=== PATIENT | female | born 2000 | race Two or more races ===

== ENCOUNTER 2025-04-20 14:42 | Emergency (ER) | payer MEDICAID, SELFPAY ==
[2025-04-20 14:57] VITALS: BP 144/93; PULSE 118; RESP 18; TEMP 37.1; O2SAT 98
[2025-04-20 15:06] VITALS: BMI 27.2
--- NOTE | 2025-04-20 15:08 | EKG_ITS ---
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
[2025-04-20] MEDS: ACETAMINOPHEN 500 MG TABLET 1000 MG PO (15:34)
--- NOTE | 2025-04-20 16:03 | EDNOTE_ITS ---
<Statement entered by Amber Paulino MD - 04/30/25 19:39> As co-signing physician, I was present and available for consult prn. I concur with the plan and care as documented by the midlevel provider. ED Anxiety RME/HPI General Chief Complaint: Anxiety Stated Complaint: ANXIETY Time Seen by Provider: 04/20/25 16:01 Source: patient Arrival date/time: 04/20/25 14:42 25-year-old female with a history of anxiety presents to the emergency room with a chief complaint of an anxiety attack that occurred and began 1 hour ago. Mode of arrival: ambulatory Limitations: no limitations Related Data Home Medications ?Medication ?Instructions ?Recorded ?Confirmed vit no.95-ferrous 1 tab PO DAILY 09/23/2302/10 fumarate 28 mg-folic acid 800 mcg tablet () Allergies Allergy/AdvReac Type Severity Reaction Status Date / Time No Known Allergies Allergy Verified 09/24/23 06:35 Review of Systems Review of Systems Systems Reviewed: All systems reviewed, normal except as documented Constitutional Constitutional: Reports system reviewed and no additional complaints, except as documented, Denies fatigue, Denies fever(s), Denies headache(s) and Denies weakness Eyes Eyes: Reports system reviewed and no additional complaints, except as documented, Denies blurry vision and Denies change in vision ENT Ears, Nose, Mouth, and Throat: Reports system reviewed and no additional complaints, except as documented, Denies otalgia, Denies headache(s), Denies nasal congestion, Denies throat swelling and Denies vertigo Cardiovascular Cardiovascular: Reports system reviewed and no additional complaints, except as documented, Denies chest pain, Denies dyspnea and Denies dyspnea on exertion Respiratory Respiratory: Reports system reviewed and no additional complaints, except as documented, Denies chest congestion, Denies cough, Denies dyspnea, Denies dyspnea on exertion and Denies wheezing Gastrointestinal Gastrointestinal: Reports system reviewed and no additional complaints, except as documented, Denies abdominal pain, Denies cramping, Denies nausea and Denies vomiting Genitourinary Genitourinary: Reports system reviewed and no additional complaints, except as documented Musculoskeletal Musculoskeletal: Reports system reviewed and no additional complaints, except as documented and Denies back pain Integumentary/Breasts Skin/Breast: Reports system reviewed and no additional complaints, except as documented and Denies wounds Neurologic Neurologic: Reports system reviewed and no additional complaints, except as d ocumented, Denies confusion, Denies headache(s), Denies lack of coordination, Denies vertigo and Denies weakness Psychiatric Psychiatric: Reports system reviewed and no additional complaints, except as documented, Reports anxiety, Denies confusion, Denies depression, Denies paranoia, Denies suicidal ideation and Denies tactile hallucinations Endocrine Endocrine: Reports system reviewed and no additional complaints, except as documented and Denies fatigue Hematologic/Lymphatic Hematologic/Lymphatic: Reports system reviewed and no additional complaints, except as documented and Denies lymphadenopathy Allergic/Immunologic Allergic/Immunologic: Reports system reviewed and no additional complaints, except as documented, Denies throat swelling, Denies urticaria and Denies wheezing ED Exam General Limitations: Present no limitations General appearance: Present alert, in no apparent distress and anxious Head Head exam: Present atraumatic Eye Eye exam: Present normal appearance, PERRL and EOMI ENT ENT exam: Present normal exam, normal oropharynx and mucous membranes moist Neck Neck exam: Present normal inspection, full ROM and trachea midline Chest Chest inspection: Present normal inspection and symmetric chest wall rise Respiratory Respiratory exam: Present normal lung sounds bilaterally Cardiovascular Cardiovascular exam: Present regular rate, normal rhythm and normal heart sounds Abdominal Exam Abdominal exam: Present soft and normal bowel sounds Extremities Exam Extremities exam: Present normal inspection and full ROM Back Exam Back exam: Present normal inspection and full ROM Neurological Exam Neurological exam: Present alert, oriented X3 and CN II-XII intact Psychiatric Psychiatric exam: Present normal affect, normal mood and anxious Skin Skin exam: Present warm, dry, intact and normal color Course Quality Measures none Orders Category Date Time Status EKG (ED ONLY) *Do not use* NOW Care 04/20/25 15:08 Active EKG (ED Only) Stat Exams 04/20/25 15:08 Draft ALPRazoLAM [Xanax] Med 04/20/25 14:54 Discontinued 0.5 mg PO X1 ONE Acetaminophen Tab [Tylenol ES Tab] Med 04/20/25 15:23 Discontinued 1,000 mg PO X1 ONE Vital Signs Vital signs: Vital Signs Temperature 98.8 F 04/20/25 14:57 Pulse Rate 118 H 04/20/25 14:57 Respiratory Rate 18 04/20/25 14:57 Blood Pressure 144/93 H 04/20/25 14:57 Pulse Oximetry (%) 98 04/20/25 14:57 Oxygen Delivery Method Room Air 04/20/25 14:57 Anxiety MDM Narrative MDM Narrative: 25-year-old female with a history of anxiety presents to the emergency room with a chief complaint of an anxiety attack that occurred and began 1 hour ago. Patient is hemodynamically stable and in no apparent distress Physical examination shows a strong and regular rhythm. The patient has clear bilateral lung sounds. Patient states she is having an anxiety attack but denies any chest pain stomach pain or any other symptoms. Patient states she has not had an anxiety attack in over a year and states it was triggered by seeing a person was causing her a lot of grief in the past An EKG was completed and patient's heart rate is at 84 bpm and is normal sinus rhythm Patient refused any blood work or any further workup. Anxiety medication was given the patient was reevaluated in 1 hour with significant improvement to her symptoms Patient was discharged and educated to follow-up with primary care provider in the next 24 to 48 hours and return to the emergency room for any evidence of worsening signs or symptoms Patient data External records reviewed:: [facility] previous records Clinical information provided by:: patient Social determinants that could affect healthcare access:: none Patient has the following chronic illnesses:: Anxiety How is presenting disease/condition affected by chronic disease/condition?: exacerbated by Evaluation data The following diagnostics were reviewed and interpreted by me:: lab results and radiology exam(s) Lab and/or radiology exams considered but not ordered:: Labs and radiology exams considered and ordered Interpretation Summary: N/A Medications / Prescriptions Medications or Prescriptions considered but not ordered:: Medication given Medication administrations:: Medication Administration History Discontinued Medications Acetaminophen (Acetaminophen 500 Mg Tablet) 1,000 mg PO X1 ONE Stop: 04/20/25 15:24 Last Admin: 04/20/25 15:34 Dose: 1,000 mg Documented By: KF Alprazolam (Alprazolam 0.25 Mg Tablet) 0.5 mg PO X1 ONE Stop: 04/20/25 14:55 Last Admin: 04/20/25 15:00 Dose: 0.5 mg Documented By: ALVINA Consultations Consultation(s) initiated? (list below): No Diagnosis Differential diagnosis anxiety: hyperventilation, panic disorder and acute anxiety Most likely diagnosis given after review of the tests above:: Acute anxiety Admission Indicated Admission indicated?: not indicated Admission Request Was there a request for admission?: No Disposition Plan Disposition Plan: Discharge Discharge Attestation Discharge Attestation: The patient and all family members were given an opportunity to ask questions and understood the discharge instructions. Discharge instructions specifically effects, indications for sooner follow up or return to the emergency department, and the expected course of current diagnosis. Patient condition: Stable Discharge Plan Plan Patient Disposition: HOME (Self Care) Discharge Disposition comment: Stable Prescriptions/Referrals Prescriptions/Med Rec: No Action PNV cmb#95-ferrous fumarate-FA [] 28 mg iron- 800 mcg tablet 1 tab PO DAILY Patient Comments: TAKE 1 TABLET BY MOUTH EVERY DAY Referrals: No Primary/Family,Physician [Primary Care Provider] - In 1 week Problem List Clinical Impression: Acute anxiety Patient/Caregiver Discharge Instructions Education Materials: ED Anxiety Reaction Additional Instructions: Please follow-up with your primary care provider in the next 24 to 48 hours For any evidence of worsening signs or symptoms return to the emergency room immediately Print Language: Gabonese Stand Alone Forms: Crystal Award Info., Patient Portal Info Letter ALEXANDRE/BRITTNEY Supervising Physician ALEXANDRE/BRITTNEY Supervising Physician: Dr. PAULINO
== END 2025-04-20 17:06 | disposition home or self-care (01) ==
PROVIDERS: Emergency Provider Emergency Medicine
DX: F41.9 Anxiety disorder, unspecified (principal)
CPT/HCPCS: 99282; A9270